=== PATIENT | female | born 1985 | race Caucasian/White ===

== ENCOUNTER 2016-11-27 19:50 | Emergency (ER) | payer OTHER ==
[2016-11-27] MEDS ORDERED: Amoxicillin CAP* 500 MG PO ONE (21:35)
[2016-11-27] MEDS ORDERED: predniSONE TAB* 20 MG PO ONE (21:35)
[2016-11-27] MEDS ORDERED: traMADol TAB* 50 MG PO ONE (21:35)
[2016-11-27 21:58] VITALS: BP 131/71
--- NOTE | 2016-11-27 23:28 | UC ---
Throat Pain/Nasal Ricardo HPI - HPI Summary HPI Summary: ST, LEFT NECK PAIN, EAR ACHE X 4 DAYS. LEFT FLANK PAIN THAT STARTED TODAY. - History of Current Complaint Chief Complaint: UCRespiratory Stated Complaint: SORE THROAT, LEFT SIDE PAIN UNDER RIBS Time Seen by Provider: 11/27/16 20:40 Hx Obtained From: Patient Hx Last Menstrual Period: now ?: No Onset/Duration: Sudden Onset, Lasting Days, Still Present, Worse Since - today Severity: Moderate Pain Intensity: 7 Cough: None Associated Signs & Symptoms: Positive: Dysphagia - pain. Negative: Drooling, Wheezing, Hoarseness, Sinus Discomfort, Nasal Discharge, Vomiting - Allergies/Home Medications Allergies/Adverse Reactions: Allergies Allergy/AdvReac Type Severity Reaction Status Date / Time Doxycycline Allergy Intermediate vomit Verified 11/27/16 20:04 Paroxetine [From Paxil] Allergy Agitation Verified 11/27/16 20:04 PMH/Surg Hx/FS Hx/Imm Hx - Additional Past Medical History Additional PMH: chrons, depression, anxiety, migraines - Surgical History Surgical History: Yes Surgery Procedure, Year, and Place: tubal, cervical dysplasia - Family History Known Family History: Positive: Cardiac Disease, Hypertension, Diabetes - Social History Lives: With Family Alcohol Use: None Substance Use Type: None Smoking Status (MU): Heavy Every Day Tobacco Smoker Type: Cigarettes Amount Used/How Often: 1/2 PPD Length of Time of Smoking/Using Tobacco: 14 YRS Have You Smoked in the Last Year: No When Did the Patient Quit Smoking/Using Tobacco: 1 yr ago Cessation Counseling: Counseled 3+Min - 10 Min Review of Systems Constitutional: Negative Skin: Negative ENT: Sore Throat, Ear Ache Respiratory: Negative Cardiovascular: Negative Gastrointestinal: Other - left flank pain Genitourinary: Negative Musculoskeletal: Negative Neurological: Negative All Other Systems Reviewed And Are Negative: Yes Physical Exam Triage Information Reviewed: Yes Appearance: Well-Appearing, No Pain Distress, Well-Nourished Vital Signs: Initial Vital Signs Temp 97.9 F 11/27/16 19:55 Pulse 78 11/27/16 19:55 Resp 24 11/27/16 19:55 BP 110/73 11/27/16 19:55 Pulse Ox 96 11/27/16 19:55 Vital Signs Reviewed: Yes Eyes: Positive: Conjunctiva Clear. Negative: Discharge ENT: Positive: Hearing grossly normal. Negative: Muffled/hoarse voice Neck: Positive: Supple, Tenderness @, Enlarged Nodes @ Respiratory: Positive: Lungs clear, Normal breath sounds, No respiratory distress, No accessory muscle use Cardiovascular: Positive: RRR, No Murmur Abdomen Description: Positive: Soft, CVA Tenderness (L). Negative: Nontender, Distended, Guarding, Mc[place]'s [place] Tenderness Bowel Sounds: Positive: Present Musculoskeletal Exam: Normal Neurological: Positive: Alert, Muscle Tone Normal Psychological: Positive: Age Appropriate Behavior Skin Exam: Normal Throat Pain/Nasal Course/Dx - Differential Dx/Diagnosis Differential Diagnosis/HQI/PQRI: Mononucleosis, Pharyngitis, Sinusitis, Tonsillitis, URI, Other - uti, reibdysfunction Provider Diagnoses: strep throat, rib dysfunction Discharge - Discharge Plan Condition: Stable Disposition: HOME Prescriptions: Amoxicillin CAP* [Amoxicillin 500 MG CAP*] 500 mg PO Q12H #19 cap predniSONE TAB* [Deltasone TAB*] 40 mg PO DAILY #8 tab traMADol TAB* [Ultram*] 50 mg PO Q8H PRN #14 tab MDD 3 TABS PRN Reason: Pain Patient Education Materials: Strep Throat (ED), Flank Pain (ED) Referrals: Candy Akbar PA [Primary Care Provider] - 3 Days Additional Instructions: Your rapid strep test was positive. So we are treating you for strep throat. AMOXICILLIN: Amoxicillin is a member of the penicillin family. It covers the germs likely to cause ear, bronchial, and urinary infections better than plain penicillin. Amoxicillin can be taken without regard to meals. Nausea after taking the medication is rare, but can occur. Diarrhea can occur, particularly in small children. Vaginal yeast infections and oral thrush in infants are also common. Contact your physician if these problems occur. Allergy to penicillins is common. If you have had an allergic reaction to any drug of the penicillin family, you should never take any other penicillin. Notify your doctor at once if you develop hives, itching, swelling, faintness, or shortness of breath. Less serious side effects can include nausea or diarrhea. CORTICOSTEROID MEDICATION: You have been given a medicine of the cortisone class. This medication is used to control inflammation or allergy. It is usually only given for a short period of time, until the acute process subsides. There are usually no side effects from short-term use of cortisone-like medications. Some persons feel an increased sense of well-being and are not sleepy at bedtime. Long-term use of cortisone medications is best avoided, unless required for a severe condition. If your condition does not remit, or relapses after the course of corticosteroid medication, you should consult your physician. Contact the physician if you develop lightheadedness, black or tarry stools , swelling of the legs, or significant rapid change in weight. Because people can have strep throat and mono at the same time, we are also testing you for mononucleosis because you also have left flank pain over your spleen and lower ribs. Sometimes mono can cause enlargement of the spleen. This would be important information you to have. If this is not mono, the most likely cause of your rib pain is that your rib is not moving right which can be very painful indeed. So we are giving you a pain medicine. ULTRAM (tramadol hydrochloride): Ultram is an excellent drug for pain relief. It is not a narcotic, but it works in a similar way. Ultram can take up to two hours for full effect. Although not addicting, Ultram is best avoided in patients with a history of drug abuse. Ultram should not be used with alcohol, sleeping pills, or narcotics. If you're prone to seizures, Ultram can make you more likely to have a seizure. Ultram can be hazardous when combined with MAO-inhibitor antidepressants (such as Nardil or Parnate). Be sure your doctor is aware of all medicines you are taking. Persons with severe liver or kidney disease should increase the time between doses of Ultram. Discuss this with your doctor if you're uncertain. Side effects of Ultram can include dizziness, nausea, constipation, sleepiness, and itching. (These side effects are also seen with narcotic pain medicines.) Please call your doctor if you have other disturbing effects. IT IS IMPORTANT THAT YOU FOLLOW UP WITH YOUR PCP THIS COMING WEDNESDAY. FOLLOW UP SOONER IF SX WORSEN OR NEW SYMPTOMS DEVELOP.
[2016-11-28 14:18] LABS: EBV Response YES
[2016-11-28 14:58] LABS: Hematocrit 39 % (35-47); Hemoglobin 13.1 g/dl (12.0-16.0); Mean Corpuscular HGB Conc 34 g/dl (31-36); Mean Corpuscular Hemoglobin 29 pg (27-31); Mean Corpuscular Volume 85 fL (80-97); Mean Platelet Volume 10 um3 (7.4-10.4); Red Blood Count 4.55 10^6/ul (4.0-5.4); Red Cell Distribution Width 13 % (10.5-15); White Blood Count 10.3 10^3/ul (3.5-10.8)
[2016-11-28 15:11] LABS: Albumin 4.2 g/dL (3.2-5.2); BUN/Creatinine Ratio 14.5 (8-20); Calcium 9.5 mg/dL (8.6-10.3); EGFR African American 112.7 (>60); EGFR Non-African American 87.6 (>60); Potassium 3.9 mmol/L (3.5-5.0); Total Bilirubin 0.4 mg/dL (0.2-1.0); Total Protein 7.2 g/dL (6.4-8.9)
[2016-11-28 15:40] LABS: Manual Entry Verification MD; Mono Internal Control QC Line Present
== END 2016-11-27 22:00 | disposition home or self-care (01) ==
LOC: UCCORT 19:50
DX: J02.0 Streptococcal pharyngitis (principal); Z87.891 Personal history of nicotine dependence; Z88.1 Allergy status to other antibiotic agents; Z88.8 Allergy status to other drugs, medicaments and biological substances
CPT/HCPCS: 36415; 80053; 81003; 85025; 86308; 86664; 86665; 87086; 87651; 99213; A9270-GY; G0463; J7512

== ENCOUNTER 2016-12-15 21:05 | Emergency (ER) | payer OTHER ==
[2016-12-15] MEDS ORDERED: Ibuprofen TAB* 600 MG PO ONE (21:30)
[2016-12-15 21:31] VITALS: BP 126/62
--- NOTE | 2016-12-15 21:35 | UC ---
Throat Pain/Nasal Ricardo HPI - HPI Summary HPI Summary: Patient had strep one month ago, only took 5 days of her amoxicillin, she felt better for a while. now she has throat pain, sinus congestion, both nares are swollen and have ulcerations with drainage, states she blows out bloody pus in the mornings. throat is sore, she is coughing and has dyspnea. - History of Current Complaint Chief Complaint: UCRespiratory Stated Complaint: CONGESTION Time Seen by Provider: 12/15/16 21:24 Hx Obtained From: Patient Hx Last Menstrual Period: last week of November ?: No Onset/Duration: Gradual Onset, Lasting Days Severity: Severe Associated Signs & Symptoms: Positive: Dysphagia, Wheezing, Sinus Discomfort, Nasal Discharge - Epiglottits Risk Factors Epiglottis Risk Factors: Negative - Allergies/Home Medications Allergies/Adverse Reactions: Allergies Allergy/AdvReac Type Severity Reaction Status Date / Time Doxycycline Allergy Intermediate vomit Verified 12/15/16 21:20 Paroxetine [From Paxil] Allergy Agitation Verified 12/15/16 21:20 PMH/Surg Hx/FS Hx/Imm Hx Previously Healthy: Yes - Surgical History Surgical History: Yes Surgery Procedure, Year, and Place: tubal, cervical dysplasia - Family History Known Family History: Positive: Cardiac Disease, Hypertension, Diabetes - Social History Alcohol Use: None Substance Use Type: None Smoking Status (MU): Heavy Every Day Tobacco Smoker Type: Cigarettes Amount Used/How Often: 1/2 PPD Length of Time of Smoking/Using Tobacco: 14 YRS Have You Smoked in the Last Year: No When Did the Patient Quit Smoking/Using Tobacco: 1 yr ago Review of Systems Constitutional: Fatigue Skin: Negative Eyes: Negative ENT: Sore Throat, Ear Ache, Nasal Discharge Respiratory: Shortness Of Breath, Cough Cardiovascular: Negative Gastrointestinal: Negative Genitourinary: Negative Motor: Negative Neurovascular: Negative Musculoskeletal: Negative Neurological: Headache Psychological: Negative All Other Systems Reviewed And Are Negative: Yes Physical Exam Triage Information Reviewed: Yes Appearance: Well-Nourished, Ill-Appearing, Pain Distress Vital Signs: Initial Vital Signs Temp 98 F 12/15/16 21:12 Pulse 80 12/15/16 21:12 Resp 18 12/15/16 21:12 BP 126/62 12/15/16 21:12 Pulse Ox 100 12/15/16 21:12 Vital Signs Reviewed: Yes Eye Exam: Normal Eyes: Positive: Conjunctiva Clear ENT: Positive: Pharyngeal erythema, Nasal congestion, Nasal drainage - purulent , TM dull, TM red Neck exam: Normal Neck: Positive: Supple, Nontender, Enlarged Nodes @ - bilateral cervical Respiratory Exam: Normal Respiratory: Positive: Decreased breath sounds, Other: - cehst tender in lower left ribs with deep breaths Cardiovascular Exam: Normal Cardiovascular: Positive: RRR, No Murmur, Pulses Normal Abdominal Exam: Normal Abdomen Description: Positive: Nontender, No Organomegaly, Soft Bowel Sounds: Positive: Present Musculoskeletal Exam: Normal Musculoskeletal: Positive: Strength Intact, ROM Intact, No Edema Neurological Exam: Normal Neurological: Positive: Alert, Muscle Tone Normal Psychological Exam: Normal Skin Exam: Normal Throat Pain/Nasal Course/Dx - Course Course Of Treatment: hx obtained, exam performed ,meds reviewed, Motrin given, chest xray, rapid strep negative and wound culture obtained from nose. - Differential Dx/Diagnosis Differential Diagnosis/HQI/PQRI: Influenza, Laryngitis, Otitis Media, Peritonsillar Abscess, Pharyngitis, Sinusitis, URI Provider Diagnoses: sinusitis. ulceration of both nares. possilbe mRSA Discharge - Discharge Plan Condition: Stable Disposition: HOME Patient Education Materials: Sinusitis (ED) Additional Instructions: 1. take the medication as prescribed. 2. Increase your fluid intake and get plenty of rest. 3. Use the nasal cream twice a day for a week. 4. Follow up if you are not seeing improvement of your symtpoms.
[2016-12-15] MEDS ORDERED: Mupirocin 2% OINT* TUBE TOPICAL ONE (21:41)
--- NOTE | 2016-12-15 21:55 | RAD ---
HISTORY: Shortness of breath, cough COMPARISONS: None VIEWS: 2: Frontal dual-energy and lateral views of the chest. FINDINGS: CARDIOMEDIASTINAL SILHOUETTE: The cardiomediastinal silhouette is normal. TAHIR: The tahir are normal. PLEURA: The costophrenic angles are sharp. No pleural abnormalities are noted. LUNG PARENCHYMA: The lungs are clear. ABDOMEN: The upper abdomen is clear. There is no subphrenic gas. BONES AND SOFT TISSUES: No bone or soft tissue abnormalities are noted. OTHER: None. IMPRESSION: NO ACTIVE CARDIOPULMONARY DISEASE.
[2016-12-15] MEDS ORDERED: Amoxicillin/Clavulanate TAB* 875 MG PO ONE (22:01)
[2016-12-15] MEDS ORDERED: Albuterol HFA INHALER* 8 gm MDI INH ONE (22:06)
== END 2016-12-15 22:15 | disposition home or self-care (01) ==
LOC: UCCORT 21:05
DX: Z87.891 Personal history of nicotine dependence (principal); J01.90 Acute sinusitis, unspecified; J34.0 Abscess, furuncle and carbuncle of nose
CPT/HCPCS: 71020; 87070; 87205; 87640; 87641; 87651; 99212; A9270-GY; G0463

== ENCOUNTER 2017-12-20 13:03 | Emergency (ER) | payer OTHER ==
--- NOTE | 2017-12-20 14:07 | UC ---
Eye Complaint HPI - HPI Summary HPI Summary: 32 yo female presents with left eye redness, drainage, and crusting for the last 3 WEEKS. She tells me that she has 7 children and hasn't had the time to get her eye treated. Does have some blurriness due to drainage. She wears contacts, but changes them daily to new pack. Denies fever, chills, injury to eye. - History of Current Complaint Hx Obtained From: Patient Hx Last Menstrual Period: last week of November Onset/Duration: Sudden Onset Timing: Constant <Mike Jennings - Last Filed: 12/20/17 14:31> <Luisito Britton - Last Filed: 12/20/17 15:00> - History of Current Complaint Stated Complaint: LEFT EYE COMPLAINT Time Seen by Provider: 12/20/17 14:05 - Allergies/Home Medications Allergies/Adverse Reactions: Allergies Allergy/AdvReac Type Severity Reaction Status Date / Time doxycycline Allergy Vomiting Verified 12/20/17 14:06 paroxetine [From Paxil] Allergy Agitation Verified 12/20/17 14:06 PMH/Surg Hx/FS Hx/Imm Hx - Additional Past Medical History Additional PMH: Rheumatoid arthritis Psychological History: Anxiety, Depression - Surgical History Surgical History: Yes Surgery Procedure, Year, and Place: tubal, cervical dysplasia - Family History Known Family History: Positive: Cardiac Disease, Hypertension, Diabetes - Social History Occupation: Employed Full-time Lives: With Family Alcohol Use: None Substance Use Type: None Smoking Status (MU): Heavy Every Day Tobacco Smoker Type: Cigarettes Amount Used/How Often: 1/2 PPD Length of Time of Smoking/Using Tobacco: 14 YRS Have You Smoked in the Last Year: No When Did the Patient Quit Smoking/Using Tobacco: 1 yr ago <Mike Jennings - Last Filed: 12/20/17 14:31> Review of Systems Constitutional: Negative Skin: Negative Eyes: Drainage, Eye Redness ENT: Negative Respiratory: Negative Cardiovascular: Negative Gastrointestinal: Negative Neurological: Negative Psychological: Negative All Other Systems Reviewed And Are Negative: Yes <Mike Jennings - Last Filed: 12/20/17 14:31> Physical Exam - Summary Physical Exam Summary: GENERAL: NAD. WDWN. No pain distress. SKIN: No rashes, sores, lesions, or open wounds. HEENT: Head: AT/NC Eyes: EOM intact. PERRLA. LEFT EYE: Moderate conjunctiva erythema and scleral injection. Mild yellow purulent drainage. RIGHT EYE: clear without inflammation or discharge. Nose: Nasal mucosa pink and moist. NTTP maxillary and frontal sinus. NECK: Supple. Nontender. No lymphadenopathy. CHEST: No accessory muscle use. Breathing comfortably and in no distress. CV: Pulses intact. Brisk cap refill. NEURO: Alert. CN II-XII grossly intact. PSYCH: Age appropriate behavior. Triage Information Reviewed: Yes Vital Signs: Vital Signs: Temp Pulse Resp BP Pulse Ox 98.3 F 61 20 104/64 100 12/20/17 14:08 12/20/17 14:08 12/20/17 14:08 12/20/17 14:08 12/20/17 14:08 <Mike Jennings - Last Filed: 12/20/17 14:31> Vital Signs: Initial Vital Signs Temp 98.3 F 12/20/17 14:08 Pulse 61 12/20/17 14:08 Resp 20 12/20/17 14:08 BP 104/64 12/20/17 14:08 Pulse Ox 100 12/20/17 14:08 <Luisito Britton - Last Filed: 12/20/17 15:00> Eye Complaint Course/Dx - Course Course Of Treatment: Left eye conjunctivitis - Differential Dx/Diagnosis Provider Diagnoses: Left eye conjunctivitis <Mike Jennings - Last Filed: 12/20/17 14:31> Discharge - Sign-Out/Discharge Documenting (check all that apply): Discharge/Admit/Transfer - Billing Disposition and Condition Condition: STABLE Disposition: Home <Mike Jennings - Last Filed: 12/20/17 14:31> - Billing Disposition and Condition Condition: STABLE Disposition: Home <Luisito Britton - Last Filed: 12/20/17 15:00> - Discharge Plan Condition: Stable Disposition: HOME Prescriptions: Ciprofloxacin 0.3% OPTH.MARTHA* [Cipro 0.3% Opth*] 1 drop LEFT EYE Q2H #1 btl Patient Education Materials: Conjunctivitis (ED) Referrals: Candy Akbar PA [Primary Care Provider] - Additional Instructions: If you develop a fever, shortness of breath, chest pain, new or worsening symptoms - please call your PCP or go to the ED. 1) If your eye does not improve in 3-4 days while using eye drops OR if your symptoms worsen, please go to the ER as vision damage could be permanent. Per institutional requirements, I have reviewed the chart, however, I was not consulted specifically or made aware of this patient by the above midlevel provider. I did not personally evaluate, interact with , or disposition this patient.
[2017-12-20 14:14] VITALS: BP 104/64
== END 2017-12-20 14:38 | disposition home or self-care (01) ==
LOC: UCCORT 13:03
DX: H10.9 Unspecified conjunctivitis (principal); Z88.1 Allergy status to other antibiotic agents; Z88.8 Allergy status to other drugs, medicaments and biological substances; F17.210 Nicotine dependence, cigarettes, uncomplicated
CPT/HCPCS: 99212; G0463

== ENCOUNTER 2018-09-14 13:09 | Emergency (ER) | payer OTHER ==
[2018-09-14 13:30] VITALS: BP 125/73
--- NOTE | 2018-09-14 13:35 | UC ---
Ear Complaint HPI - HPI Summary HPI Summary: Patient has had congestion and cold symptoms over the past 2 or 3 weeks. She states that she now has an earache. She also has sores in her nose for which she has been applying an antibiotic ointment which she believes is mupirocin but she's not sure. She feels like she may have had a fever. Today the nose is swollen with mild erythema. - History of Current Complaint Chief Complaint: UCGeneralIllness Stated Complaint: BILAT EAR PAIN/BODY ACHES/SORES IN NOSE Time Seen by Provider: 09/14/18 13:34 Hx Obtained From: Patient Hx Last Menstrual Period: 08/19/18 ?: No Onset/Duration: Gradual Onset Severity Initially: Mild Severity Currently: Moderate Pain Intensity: 4 Aggravating Factors: Nothing Alleviating Factors: Nothing Associated Signs/Symptoms: Positive: Swelling @ - Swelling and erythema to the end of her nose and around the sores that are in her nostrils., URI Symptoms - Allergies/Home Medications Allergies/Adverse Reactions: Allergies Allergy/AdvReac Type Severity Reaction Status Date / Time doxycycline Allergy Vomiting Verified 09/14/18 13:26 paroxetine [From Paxil] Allergy Agitation Verified 09/14/18 13:26 Home Medications: Home Medications Nasal Ointment 1 applic TID 09/14/18 [History] PMH/Surg Hx/FS Hx/Imm Hx Previously Healthy: Yes - Surgical History Surgical History: Yes Surgery Procedure, Year, and Place: tubal, cervical dysplasia - Family History Known Family History: Positive: Cardiac Disease, Hypertension, Diabetes - Social History Alcohol Use: None Substance Use Type: None Smoking Status (MU): Former Smoker Type: Cigarettes Amount Used/How Often: 1/2 PPD Length of Time of Smoking/Using Tobacco: 14 YRS Have You Smoked in the Last Year: No When Did the Patient Quit Smoking/Using Tobacco: 1 yr ago Review of Systems All Other Systems Reviewed And Are Negative: Yes Constitutional: Positive: Negative - She has not registered a fever however she feels feverish. Skin: Positive: Rash - Sores in both nostrils for which she has been applying mupirocin over the past couple of weeks without improvement. Today the end of her nose and around the sores is erythematous and tender with minimal swelling Eyes: Positive: Negative ENT: Positive: Ear Ache Respiratory: Positive: Negative Cardiovascular: Positive: Negative Gastrointestinal: Positive: Negative Genitourinary: Positive: Negative Motor: Positive: Negative Neurovascular: Positive: Negative Musculoskeletal: Positive: Negative Neurological: Positive: Negative Psychological: Positive: Negative Is Patient Immunocompromised?: No Physical Exam Triage Information Reviewed: Yes Appearance: Well-Appearing, No Pain Distress, Well-Nourished Vital Signs: Initial Vital Signs Temp 97.5 F 09/14/18 13:25 Pulse 71 09/14/18 13:25 Resp 16 09/14/18 13:25 BP 125/73 09/14/18 13:25 Pulse Ox 100 09/14/18 13:25 Vital Signs Reviewed: Yes Eye Exam: Normal ENT: Positive: Pharynx normal, Nasal congestion, TMs normal, Other - Patient has 2 scabs sores, one in each nostril, the end of her nose and around the sores are erythematous with tenderness on palpation and minimal swelling to the end of her nose. There is no red streaking in her face not swollen. Face is nontender. Neck exam: Normal Respiratory Exam: Normal Cardiovascular Exam: Normal Abdominal Exam: Normal Bowel Sounds: Positive: Present Musculoskeletal Exam: Normal Neurological Exam: Normal Psychological Exam: Normal Skin Exam: Normal Ear Complaint Course/Dx - Course Course Of Treatment: Patient has been comfortable here however her nose is excessively tender. There is no facial involvement other than the nose. I did advise her that if this worsens over the next 24-48 hours she definitely needs go to the emergency room. She is agreeable with plan of action. - Differential Dx/Diagnosis Differential Diagnosis/HQI/PQRI: URI Provider Diagnosis: Cellulitis of nose, external Discharge - Sign-Out/Discharge Documenting (check all that apply): Patient Departure All imaging exams completed and their final reports reviewed: No Studies - Discharge Plan Condition: Fair Disposition: HOME Prescriptions: Amoxicillin/Clavulanate TAB* [Augmentin TAB 875*] 875 mg PO BID 10 Days #20 tab Ondansetron TAB* [Zofran 4 MG Tab*] 4 mg PO Q6H PRN #15 tab PRN Reason: Nausea Patient Education Materials: Cellulitis (DC) Referrals: Candy Akbar PA [Primary Care Provider] - Additional Instructions: Take the Augmentin with food. Continue to apply the pavement to the sores in your nose. Definite follow-up in the emergency room if the nose becomes swollen or any swelling or redness to her face, fever or chills. - Billing Disposition and Condition Condition: FAIR Disposition: Home
== END 2018-09-14 13:48 | disposition home or self-care (01) ==
LOC: UCCORT 13:09
DX: J34.0 Abscess, furuncle and carbuncle of nose (principal); Z88.1 Allergy status to other antibiotic agents; Z88.8 Allergy status to other drugs, medicaments and biological substances; Z87.891 Personal history of nicotine dependence
CPT/HCPCS: 99212; G0463

== ENCOUNTER 2018-11-21 11:17 | Emergency (ER) | payer OTHER ==
--- OUTSIDE RECORDS SUMMARY | 2018-11-21 11:28 | XMS REPORT | Continuity of Care Document ---
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 NEGATIVE Negative Urine PH 8.5 High 6.5-7.5 Urine Protein - Dipstick TRACE mg/dL Negative Urine Urobilinogen - Dipstick 0.2 E.U./dL N 0.2-1.0 Urine Nitrite - Dipstick NEGATIVE Negative Urine Leuk Esterase NEGATIVE Negative Source: URINE, CLEAN CAT <SEE NOTE> 37 Laboratory test 07/30/2017 [facility] C-Reactive < 2.9 <3.0 finding [address] Protein,Quant mg/[place] [address] [phone] CBS W/Automated 07/30/2017 [facility] White Blood Count 8.2 K/uL N 3.1-10.[address] [place] [address] [phone] Red Blood Count 4.72 M/uL N 3.90-5.40 Hemoglobin 13.9 gm/dL N 11.6-15.8 Hematocrit 39.8 % N 36.0-46.1 Mean Cell Volume 84.3 fl N 80.9-99.0 Mean Corpuscular HGB 29.4 pg N 25.9-32.7 Mean Corpuscular HGB Conc 34.9 g/dL High 30.8-34.3 Platelet Count 272 K/uL N 155-360 Red Cell Distri Width SD 37.8 fl N 3-47 Red Cell Distri Width %CV 12.7 % N 11.7-14.4 Mean Platelet Volume 11.9 fL N 8.9-12.4 Neut% 60.4 % N 40.4-72.8 Lymph % 31.2 % N 20.0-42.0 [place] % 5.9 % N 4.3-13.2 Eo% 2.1 % N 0.0-6.6 Bas% 0.4 % N 0.0-1.1 Neut# 4.96 K/uL N 1.8-7.0 Lymph # 2.56 K/uL N 1.0-4.0 [place] # 0.48 K/uL N 0.3-0.9 Eos # 0.17 K/uL N 0.0-0.5 Baso # 0.03 K/uL N 0.0-0.1 Laboratory test finding 07/30/2017 [facility] Uric Acid 3.5 mg/dL N 2.6-6.[address] [place] [address] [phone] Calcium 9.6 mg/dL N 8.5-10.1 Total Protein 7.9 g/dL N 6.4-8.2 Albumin 4.1 g/dL N 3.4-5.0 Alb/Glob 1.1 ratio Alkaline Phosphatase 71 U/L N 45-117 Rheumatoid Factor Screen < 10.0 IU/mL N 0.0-15.0 Globulin 3.8 g/dL N 1.9-4.3 Sedimentation Rate 13 mm/hr N 0-20 38 Antinuclear Antibodies, Ifa Negative . 39 Urine HCG 07/23/2017 [facility] Urine HCG NEGATIVE Negative 40, (Qualitative) [address] (Qualitative) 41 [place] [address] [phone] Source: URINE, CLEAN CAT <SEE NOTE> 42 Ua RFX Micro & Culture 07/23/2017 [facility] Urine Color YELLOW Yellow II [address] [place] [address] [phone] Urine Clarity CLEAR Clear Urine Glucose - Dipstick NEGATIVE mg/dL Negative Urine Bilirubin - Dipstick NEGATIVE Negative Urine Ketone NEGATIVE mg/dL Negative Urine Specific [place] 1.015 N 1.010-1.030 Urine Blood NEGATIVE Negative Urine PH 7.0 N 6.5-7.5 Urine Protein - Dipstick NEGATIVE mg/dL Negative Urine Urobilinogen - Dipstick 1.0 E.U./dL N 0.2-1.0 Urine Nitrite - Dipstick NEGATIVE Negative Urine Leuk Esterase NEGATIVE Negative Source: URINE, CLEAN CAT <SEE NOTE> 43 Drugs Of 07/23/2017 [facility] Amphetamines (Urine) Negative Abuse-Urine Screen [address] [place] [address] [phone] Barbiturates (Urine) Negative Benzodiazepines (Urine) Negative Cannabinoids (Urine) Negative Cocaine Metabolite (Urine) Negative Methadone (Urine) Negative Opiates (Urine) Negative Urine Cutoffs * 44 Laboratory test 06/09/2017 [facility] Thinprep Pap & <pending> finding [address] Reflex HPV: [place] [address] [phone] CBS W/Automated 06/09/2017 [facility] White Blood 8.0 K/uL N 3.1-10. [address] Count 7 [place] [address] [phone] Red Blood Count 4.73 M/uL N 3.90-5.40 Hemoglobin 14.0 gm/dL N 11.6-15.8 Hematocrit 40.2 % N 36.0-46.1 Mean Cell Volume 85.0 fl N 80.9-99.0 Mean Corpuscular HGB 29.6 pg N 25.9-32.7 Mean Corpuscular HGB Conc 34.8 g/dL High 30.8-34.3 Platelet Count 310 K/uL N 155-360 Red Cell Distri Width SD 37.9 fl N 3-47 Red Cell Distri Width %CV 12.6 % N 11.7-14.4 Mean Platelet Volume 11.4 fL N 8.9-12.4 Neut% 62.2 % N 40.4-72.8 Lymph % 30.0 % N 20.0-42.0 [place] % 5.4 % N 4.3-13.2 Eo% 2.0 % N 0.0-6.6 Bas% 0.4 % N 0.0-1.1 Neut# 4.98 K/uL N 1.8-7.0 Lymph # 2.40 K/uL N 1.0-4.0 [place] # 0.43 K/uL N 0.3-0.9 Eos # 0.16 K/uL N 0.0-0.5 Baso # 0.03 K/uL N 0.0-0.1 TSH Reflex FT4 06/09/2017 [facility] Thyroid Stim 1.46 uIU/mL N 0.30-4.20 And/Or FT3 [address] Hormone [place], [place] [id number] [phone] Reflex add FT3? N Reflex add FT4? Y Laboratory 02/09/2017 [facility] Urine HCG NEGATIVE Negative 46, 47 test finding [address] (Qualitative) [place], [place] [id number] [phone] Laboratory 12/15/2016 [facility] Laboratory Wound/Misc SEE RESULT 48, 49 test finding [phone] Culture-Gram BELOW Stain MRSA/S. aureus Ssti PCR SEE RESULT BELOW 50 Laboratory 12/15/2016 [facility] Laboratory Rapid Strep Negative N Negative 51 test finding [phone] Molecular Laboratory 11/27/2016 [facility] Laboratory Rapid Strep POSITIVE Abnormal Negative 52 test finding [phone] Molecular Poc Urinalysis 11/27/2016 [facility] Laboratory Poc Glucose, Negative N Negative [phone] Urine Poc Bilirubin, Urine Negative N Negative Poc Ketone, Urine Negative N Negative Poc Specific [place], Urine 1.010 N 1.010-1.030 Poc Blood, Urine 2+ Abnormal Negative Poc pH, Urine 7.0 N 5-9 Poc Protein, Urine Negative N Negative Poc Urobilinogen, Urine 1.0 N Negative Poc Nitrite, Urine Negative N Negative Poc Leukocytes, Urine Negative N Negative Poc Color, Urine Yellow N Poc Clarity, Urine Cloudy N 53 Comp Metabolic Panel 11/27/2016 [facility] Sodium 136 mmol/L N 133-145 [phone] Potassium 3.9 mmol/L N 3.5-5.0 Chloride 105 mmol/L N 101-111 Co2 Carbon Dioxide 25 mmol/L N 22-32 Anion Gap 6 mmol/L N 2-11 Glucose 81 mg/dL N 70-100 Blood Urea Nitrogen 11 mg/dL N 6-24 Creatinine 0.76 mg/dL N 0.51-0.95 BUN/Creatinine Ratio 14.5 N 8-20 Calcium 9.5 mg/dL N 8.6-10.3 Total Protein 7.2 g/dL N 6.4-8.9 Albumin 4.2 g/dL N 3.2-5.2 Globulin 3.0 g/dL N 2-4 Albumin/Globulin Ratio 1.4 N 1-3 Total Bilirubin 0.40 mg/dL N 0.2-1.0 Alkaline Phosphatase 68 U/L N 34-104 Alt 9 U/L N 7-52 Ast 12 U/L Low 13-39 Egfr Non- 87.6 N >60 Egfr 112.7 N >60 54 CBC Auto Diff 11/27/2016 [facility] Laboratory White Blood 10.3 10^3/uL N 3.5-10.8 [phone] Count Red Blood Count 4.55 10^6/uL N 4.0-5.4 Hemoglobin 13.1 g/dL N 12.0-16.0 Hematocrit 39 % N 35-47 Mean Corpuscular Volume 85 fL N 80-97 Mean Corpuscular Hemoglobin 29 pg N 27-31 Mean Corpuscular HGB Conc 34 g/dL N 31-36 Red Cell Distribution Width 13 % N 10.5-15 Platelet Count 252 10^3/uL N 150-450 Mean Platelet Volume 10 um3 N 7.4-10.4 Abs Neutrophils 6.5 10^3/uL N 1.5-7.7 Abs Lymphocytes 2.9 10^3/uL N 1.0-4.8 Abs Monocytes 0.6 10^3/uL N 0-0.8 Abs Eosinophils 0.2 10^3/uL N 0-0.6 Abs Basophils 0.1 10^3/uL N 0-0.2 Abs Nucleated RBC 0.01 10^3/uL N Granulocyte % 62.8 % N 38-83 Lymphocyte % 28.2 % N 25-47 Monocyte % 6.3 % N 1-9 Eosinophil % 1.7 % N 0-6 Basophil % 1.0 % N 0-2 Nucleated Red Blood Cells % 0.1 N Laboratory test 11/27/2016 [facility] Laboratory Monospot Negative N Negative 55 finding [phone] Urine Culture SEE RESULT BELOW 56 Juanis Mulligan 11/27/2016 [facility] Laboratory Ebv Capsid Positive N Negative Comprehensive [phone] Ag IgG Ab Ebv Capsid Ag IgM Ab Negative N Negative Juanis-Mulligan Nuclear Antigen Positive N Negative Juanis-Mulligan Virus Interp See Comment N 57 Lyme Igm (Reflex 11/05/2016 [facility] Lyme Disease <0.80 0.00-0.79 58, Western Blot) [address] Antibody,QT,Igm index 59 [place], [place] [id number] [phone] CCP Igg/Iga 11/05/2016 [facility] CCP Igg/Iga 11 0-19 [address] Antibodies units [place], [place] [id number] [phone] Comprehensive 11/05/2016 [facility] Glucose 94 N 74-106 Metabolic Panel [address] mg/dL [place], [place] [id number] [phone] BUN 9 mg/dL N 7-18 Creatinine 0.6 mg/dL N 0.6-1.3 Glom Filtration Rate, Estimate >60 mL/min >60 If >60 mL/min >60 61 BUN/Creat 15.0 ratio Sodium 142 mmol/L N 136-145 Potassium 4.0 mmol/L N 3.5-5.1 Chloride 105 mmol/L N 98-107 Carbon Dioxide 32 mmol/L N 21-32 Anion Gap 5 mEq/L Low 8-16 Calcium 9.1 mg/dL N 8.5-10.1 Total Protein 7.4 g/dL N 6.4-8.2 Albumin 3.7 g/dL N 3.4-5.0 Globulin 3.7 g/dL N 1.9-4.3 Alb/Glob 1.0 ratio Bilirubin,Total 0.3 mg/dL N 0.2-1.0 Sgot/Ast 15 U/L N 15-37 SGPT/Alt 30 U/L N 12-78 Alkaline Phosphatase 70 U/L N 45-117 CBS W/Automated Diff 11/05/2016 [facility] White Blood 6.6 K/uL N 3.1-10.[address] [place] [address] [phone] Red Blood Count 4.47 M/uL N 3.90-5.40 Hemoglobin 13.2 gm/dL N 11.6-15.8 Hematocrit 39.0 % N 36.0-46.1 Mean Cell Volume 87.2 fl N 80.9-99.0 Mean Corpuscular HGB 29.5 pg N 25.9-32.7 Mean Corpuscular HGB Conc 33.8 g/dL N 30.8-34.3 Platelet Count 276 K/uL N 150-400 Red Cell Distri Width SD 38.9 fl N 3-47 Red Cell Distri Width %CV 12.4 % N 11.7-14.4 Mean Platelet Volume 11.9 fL N 8.9-12.4 Neut% 58.4 % N 40.4-72.8 Lymph % 33.6 % N 20.0-42.0 [place] % 5.7 % N 4.3-13.2 Eo% 1.8 % N 0.0-6.6 Bas% 0.5 % N 0.0-1.1 Neut# 3.86 K/uL N 1.8-7.0 Lymph # 2.22 K/uL N 1.0-4.0 [place] # 0.38 K/uL N 0.3-0.9 Eos # 0.12 K/uL N 0.0-0.5 Baso # 0.03 K/uL N 0.0-0.1 Laboratory test 11/05/2016 [facility] Sedimentation Rate 17 mm/hr N 0-20 62 finding [address] [place] [address] [phone] Uric Acid 4.3 mg/dL N 2.6-6.0 Calcium 9.2 mg/dL N 8.5-10.1 Total Protein 7.4 g/dL N 6.4-8.2 Albumin 3.8 g/dL N 3.4-5.0 Alb/Glob 1.1 ratio Alkaline Phosphatase 70 U/L N 45-117 Rheumatoid Factor Screen < 10.0 IU/mL N 0.0-15.0 Globulin 3.6 g/dL N 1.9-4.3 Antinuclear Antibodies, Ifa Negative . 63 Urine Screen 12/12/2015 [facility] Urine Color YELLOW Yellow [address] [place] [address] [phone] Urine Clarity CLEAR Clear Urine Glucose - Dipstick NEGATIVE mg/dL Negative Urine Bilirubin - Dipstick NEGATIVE Negative Urine Ketone NEGATIVE mg/dL Negative Urine Specific [place] 1.010 1.010-1.030 Urine Blood NEGATIVE Negative Urine PH 7.0 6.5-7.5 Urine Protein - Dipstick NEGATIVE mg/dL Negative Urine Urobilinogen - Dipstick 0.2 E.U./dL 0.2-1.0 Urine Nitrite - Dipstick NEGATIVE Negative Urine Leuk Esterase NEGATIVE Negative Laboratory test 05/15/2015 [facility] TSH Reflex 2.84 uIU/mL 0.36-3.74 64 finding 134 [facility] FT4 and/[place] [address] FT3 [phone] FSH 7.4 mIU/mL 65 Luteinizing Hormone 3.6 mIU/mL 66 Prolactin 4.1 ng/mL 67 Comprehensive Metabolic 05/15/2015 [facility] Glucose 78 mg/dL 74-106 Panel [address] [place] [address] [phone] BUN 9 mg/dL 7-18 Creatinine 0.8 mg/dL 0.6-1.3 Glom Filtration Rate, Estimate >60 mL/min >60 If >60 mL/min >60 68 BUN/Creat 11.2 ratio Sodium 140 mmol/L 136-145 Potassium 3.9 mmol/L 3.5-5.1 Chloride 108 mmol/L High 98-107 Carbon Dioxide 28 mmol/L 21-32 Anion Gap 4 mEq/L Low 8-16 Calcium 8.9 mg/dL 8.5-10.1 Total Protein 7.6 g/dL 6.4-8.2 Albumin 3.6 g/dL 3.4-5.0 Globulin 4.0 g/dL 1.9-4.3 Alb/Glob 0.9 ratio Bilirubin,Total 0.2 mg/dL 0.2-1.0 Sgot/Ast 14 U/L Low 15-37 69 SGPT/Alt 28 U/L 12-78 Alkaline Phosphatase 84 U/L 45-117 CBC W/Automated Diff 05/15/2015 [facility] White Blood 9.6 K/uL 3.1-10.[address] [place] [address] [phone] Red Blood Count 4.40 M/uL 3.90-5.40 Hemoglobin 13.2 gm/dL 11.6-15.8 Hematocrit 38.3 % 36.0-46.1 Mean Cell Volume 87.0 fl 80.9-99.0 Mean Corpuscular HGB 30.0 pg 25.9-32.7 Mean Corpuscular HGB Conc 34.5 g/dL High 30.8-34.3 Platelet Count 286 K/uL 155-360 Red Cell Distri Width SD 39.2 fl 3-47 Red Cell Distri Width %CV 12.8 % 11.7-14.4 Mean Platelet Volume 10.9 fL 8.9-12.4 Neut% 61.9 % 40.4-72.8 Lymph % 27.7 % 17.0-46.1 [place] % 6.9 % 4.3-13.2 Eo% 3.0 % 0.0-6.6 Bas% 0.5 % 0.0-1.1 Neut# 5.92 K/uL 1.0-7.0 Lymph # 2.65 K/uL 1.8-7.0 [place] # 0.66 K/uL 0.3-0.9 Eos # 0.29 K/uL 0.0-0.5 Baso # 0.05 K/uL 0.0-0.1 Glycohemoglobin A1c 10/16/2014 [facility] Glycohemoglobin 5.0 % 4.2-6.3 70 [address] (A1c) [place] [address] [phone] eAG 97 mg/dL Comprehensive Metabolic 10/16/2014 [facility] Glucose 95 mg/dL 74-106 Panel [address] [place] [address] [phone] BUN 7 mg/dL 7-18 Creatinine 0.8 mg/dL 0.6-1.3 Glom Filtration Rate, Estimate >60 mL/min >60 If >60 mL/min >60 71 BUN/Creat 8.7 ratio Sodium 136 mmol/L 136-145 Potassium 3.9 mmol/L 3.5-5.1 Chloride 103 mmol/L 98-107 Carbon Dioxide 27 mmol/L 21-32 Anion Gap 6 mEq/L Low 8-16 Calcium 8.9 mg/dL 8.5-10.1 Total Protein 7.9 g/dL 6.4-8.2 Albumin 3.9 g/dL 3.4-5.0 Globulin 4.0 g/dL 1.9-4.3 Alb/Glob 1.0 ratio Bilirubin,Total 0.2 mg/dL 0.2-1.0 Sgot/Ast 20 U/L 15-37 SGPT/Alt 39 U/L 12-78 Alkaline Phosphatase 75 U/L 45-117 Laboratory test 10/16/2014 [facility] Uric Acid 4.6 mg/dL 2.6-6.0 72 finding [address] [place] [address] [phone] Thyroid Stim Hormone 1.40 uIU/mL 0.36-3.74 73 Rheumatoid Factor Screen < 10.0 IU/mL 0.0-15.0 74 Antinuclear Antibodies, Ifa Negative . 75 Sedimentation Rate 18 mm/hr 0-20 Laboratory test 12/23/2010 [facility] Gallbladder See Note 76 finding [address] [place] [place] [address] [phone] Basic Metabolic 12/17/2010 [facility] Glucose 65 mg/dL Low 76-115 Panel [address] [place] [place] [address] [phone] BUN 8 mg/dL 5-23 Creatinine 0.6 mg/dL 0.5-1.4 Glom Filtration Rate, Estimate >60 mL/min >60 If >60 mL/min >60 77 BUN/Creat 13.3 Sodium 138 mEq/L 136-145 Potassium 3.7 mEq/L 3.5-5.1 Chloride 102 mEq/L 98-107 Carbon Dioxide 30 mEq/L 21-32 Anion Gap 10 mEq/L 8-16 Calcium 8.9 mg/dL 8.5-10.1 Urine Screen 12/17/2010 [facility] Urine Color YELLOW Yellow [address] [place] [address] [phone] Urine Clarity CLEAR Clear Urine Glucose - Dipstick NEGATIVE mg/dL Negative Urine Bilirubin - Dipstick NEGATIVE Negative Urine Ketone NEGATIVE mg/dL Negative Urine Specific [place] <=1.005 Low 1.010-1.030 Urine Blood NEGATIVE Negative Urine PH 7.0 6.5-7.5 Urine Protein - Dipstick NEGATIVE mg/dL Negative Urine Urobilinogen - Dipstick 0.2 E.U./dL 0.2-1.0 Urine Nitrite - Dipstick NEGATIVE Negative Urine Leuk Esterase NEGATIVE Negative CBC 12/17/2010 [facility] White Blood Count 7.9 K/uL 3.1-10.[address] [place] [address] [phone] Red Blood Count 4.50 M/uL 3.90-5.40 Hemoglobin 12.6 gm/dL 11.6-15.8 Hematocrit 37.4 % 36.0-46.1 Mean Cell Volume 83.1 fl 80.9-99.0 Mean Corpuscular HGB 28.0 pg 25.9-32.7 Mean Corpuscular HGB Conc 33.7 g/dL 30.8-34.3 Platelet Count 272 K/uL 155-360 Red Cell Distri Width %CV 12.6 % 11.7-14.4 Mean Platelet Volume 11.4 fL 8.9-12.4 Liver Function Tests 12/17/2010 [facility] Total Protein 6.5 g/dL 6.3-8.0 [address] [place] [address] [phone] Albumin 3.4 g/dL Low 3.5-5.0 Bilirubin,Total 0.3 mg/dL 0.2-1.2 Bilirubin,Direct 0.1 mg/dL 0.1-0.4 Bilirubin,Indirect 0.2 mg/dL 0.0-0.9 Sgot/Ast 11 U/L Low 16-40 SGPT/Alt 27 U/L Low 30-65 Alkaline Phosphatase 78 U/L 50-136 Globulin 3.1 gm/dL 1.9-4.3 Alb/Glob 1.1 Antineutrophil 10/31/2010 [facility] Cytoplasmic <1:20 Neg:<1:20 Cytoplasmic AB [address] (C-Anca) [place] [address] [phone] Perinuclear (P-Anca) <1:20 titer Neg:<1:20 78 Atypical pANCA <1:20 titer Neg:<1:20 79 Laboratory test 10/31/2010 [facility] C-Reactive 1.2 mg/L 0.0-4.9 [address] Protein,[place] [address] [phone] CBC 10/31/2010 [facility] White Blood Count 8.6 K/uL 3.1-10.[address] [place] [address] [phone] Red Blood Count 4.50 M/uL 3.90-5.40 Hemoglobin 12.7 gm/dL 11.6-15.8 Hematocrit 37.6 % 36.0-46.1 Mean Cell Volume 83.6 fl 80.9-99.0 Mean Corpuscular HGB 28.2 pg 25.9-32.7 Mean Corpuscular HGB Conc 33.8 g/dL 30.8-34.3 Platelet Count 255 K/uL 155-360 Red Cell Distri Width %CV 12.9 % 11.7-14.4 Mean Platelet Volume 10.6 fL 8.9-12.4 Saccharomyces 10/31/2010 [facility] Saccharomyces 23.2 0.0-24.9 81 Cerevisiae Panel [address] cerevisiae, [place] [address] [phone] Saccharomyces cerevisiae, IgA < 20.0 units 0.0-24.9 82 Liver Function Tests 10/31/2010 [facility] Total Protein 7.5 g/dL 6.3-8.[address] [place] [address] [phone] Albumin 3.8 g/dL 3.5-5.0 Bilirubin,Total 0.3 mg/dL 0.2-1.2 Bilirubin,Direct 0.1 mg/dL 0.1-0.4 Bilirubin,Indirect 0.2 mg/dL 0.0-0.9 Sgot/Ast 11 U/L Low 16-40 SGPT/Alt 28 U/L Low 30-65 Alkaline Phosphatase 80 U/L 50-136 Globulin 3.7 gm/dL 1.9-4.3 Alb/Glob 1.0 Laboratory test 10/31/2010 [facility] Amylase 45 U/L 18-98 83 finding [address] [place] [address] [phone] Laboratory test 05/08/2010 [facility] Endocervical See Note 84 finding [address] [place] [address] [phone] 1 CROHNS, CONSTIPATION, DIZZY 2 URINE, CLEAN CATCH 3 Note: Persistent reduction for 3 months or more in an eGFR <60 mL/min/1.73 m2 defines CKD. Patients with eGFR values >/=60 mL/min/1.73 m2 may also have CKD if evidence of persistent proteinuria is present. The original MDRD equation for estimated GFR is not valid for patients less than 18 years of age. Additional information may be found at www.kdoqi.org. 4 Values below the stated reference ranges of AST and ALT can be seen in normal populations. Clinical correlation is suggested. 5 Method: Quidel QuickVue One-Step Immunoassay 6 MIGRAINE 7 Method: Quidel QuickVue One-Step Immunoassay 8 K50.90 R19.7 R10.84 9 The atypical pANCA pattern has been observed in a significant percentage of patients with ulcerative colitis, primary sclerosing cholangitis and autoimmune hepatitis. ASCA+/PANCA- Suggestive of Crohn's disease ASCA-/PANCA+ Suggestive of Ulcerative colitis Performed at: [address] [id number] Lmsw: Lencho Patel MD, Phone: [phone] 10 Negative <20.0 Equivocal 20.1 - 24.9 Positive >or=25.0 11 Negative <20.0 Equivocal 20.1 - 24.9 Positive >or=25.0 IgA and IgG antibody testing for S. cerevisiae is useful adjunct testing for differentiating Crohn's disease and ulcerative colitis. Close to 80% of Crohn's disease patients are positive for either IgA or IgG. In ulcerative colitis, less than 15% are positive for IgG and less than 2% are positive for IgA. Fewer than 5% are positive for either IgG or IgA antibody, and no healthy controls had antibody for both. 12 K50.90 13 Concentration Interpretation Follow-Up <16 - 50 ug/g Normal None >50 -120 ug/g Borderline Re-evaluate in 4-6 weeks >120 ug/g Abnormal Repeat as clinically indicated Performed at: - [facility] [id number] Lmsw: Camelia Salomon MD, Phone: [phone] 14 Results verified by repeat testing Baseline (normal) 0.00 - 7.24 Elevated >7.24 An elevated result is indicative of the presence of fecal lactoferrin, a marker of intestinal inflammation. A normal result does not exclude the presence of intestinal inflammation. The test can be used as an in vitro diagnostic aid to distinguish patients with active inflammatory bowel disease (IBD) from those with non-inflammatory irritable bowel syndrome (IBS). 15 Method: Sediplast Modified Westergren 16 Vitamin D deficiency has been defined by the [place] of [employer] and an Endocrine Society practice guideline as a level of serum 25-OH vitamin D less than 20 ng/mL (1,2). The Endocrine Society went on to further define vitamin D insufficiency as a level between 21 and 29 ng/mL (2). 1. IOM ([place] of [employer]). 2010. Dietary reference intakes for calcium and D. Rachel [place]: The National Academies Press. 2. Elina MF, Stevie NC, Rajan INMAN, et al. Evaluation, treatment, and prevention of vitamin D deficiency: an Endocrine Society clinical practice guideline. JCEM. 2010; 96(7):1911-30. Performed at: - [facility] [address] [id number] Lmsw: Bonny Okeefe MD, Phone: [phone] 17 Negative 0 - 19 Weak Positive 20 - 30 Moderate to Strong Positive >30 18 Negative 0 - 19 Weak Positive 20 - 30 Moderate to Strong Positive >30 19 Negative 0 - 3 Weak Positive 4 - 10 Positive >10 Tissue Transglutaminase (tTG) has been identified as the endomysial antigen. Studies have demonstr- ated that endomysial IgA antibodies have over 99% specificity for gluten sensitive enteropathy. 20 Negative 0 - 5 Weak Positive 6 - 9 Positive >9 21 INFCE Result Units: Units/mL RBC Reference Range: Normal: 15.1 - 26.4 Heterozygous for low TPMT variant: 6.3 - 15.0 Homozygous for low TPMT variant: <6.3 22 The above results can be interpreted as Normal for red blood cell Thiopurine Methyltransferase activity. For patients having an intrinsic low level of TPMT, recent RBC transfusion can variably increase their assayed enzymatic activity depending on the amount and circulating half-life of the transfused red blood cells. This test was developed and its performance characteristics determined by [facility] ???. It has not been cleared or approved by the Food and Drug Administration. This case has been reviewed, approved, interpreted and electronically signed by Emmanuel Cr, PhD. 23 Enzymatic Endpoint/Liquid Chromatography - Tandem Mass Spectrometry (LC-MS/MS) Performed at: [facility] [id number] Lmsw: Bonny Okeefe MD, Phone: [phone] Performed at: [facility] [address] [place] [id number] Lmsw: Robin Alvarado MD, Phone: [phone] 24 SENT BY CHAPIN QUIÑONEZ 25 Tests: troponin Instructions: 26 Note: Persistent reduction for 3 months or more in an eGFR <60 mL/min/1.73 m2 defines CKD. Patients with eGFR values >/=60 mL/min/1.73 m2 may also have CKD if evidence of persistent proteinuria is present. The original MDRD equation for estimated GFR is not valid for patients less than 18 years of age. Additional information may be found at www.kdoqi.org. 27 Values below the stated reference ranges of AST and ALT can be seen in normal populations. Clinical correlation is suggested. 28 Method: Quidel QuickVue One-Step Immunoassay 29 0.0 - 0.045 ng/mL: Normal 0.046 - 0.5 ng/mL: Suggestive 0.6 - 1.5 ng/mL: Consistent 30 URINE, CLEAN CATCH 31 LOWER ABD PAIN 32 Note: Persistent reduction for 3 months or more in an eGFR <60 mL/min/1.73 m2 defines CKD. Patients with eGFR values >/=60 mL/min/1.73 m2 may also have CKD if evidence of persistent proteinuria is present. The original MDRD equation for estimated GFR is not valid for patients less than 18 years of age. Additional information may be found at www.kdoqi.org. 33 Values below the stated reference ranges of AST and ALT can be seen in normal populations. Clinical correlation is suggested. 34 Method: Sediplast Modified Westergren 35 FIRST MORNING SPECIMENS GENERALLY CONTAIN THE HIGHEST CONCENTRATION OF HCG AND ARE RECOMMENDED FOR EARLY DETECTION OF . Method: Quidel QuickVue One-Step Immunoassay 36 URINE, CLEAN CATCH 37 URINE, CLEAN CATCH 38 Method: Sediplast Modified Westergren 39 Negative <1:80 Borderline 1:80 Positive >1:80 Performed at: - [facility] [id number] Lmsw: Bonny Okeefe MD, Phone: [phone] 40 EVAL 41 FIRST MORNING SPECIMENS GENERALLY CONTAIN THE HIGHEST CONCENTRATION OF HCG AND ARE RECOMMENDED FOR EARLY DETECTION OF . Method: Quidel QuickVue One-Step Immunoassay 42 URINE, CLEAN CATCH 43 URINE, CLEAN CATCH 44 URINE SPECIMENS ARE SCREENED AT THE LISTED [facility] DRUG CLASS INITIAL TEST LEVEL Amphetamines 1000 ng/mL Barbiturates 200 ng/mL Benzodiazepines 200 ng/mL Cannabinoids 50 ng/mL Cocaine Metabolite 300 ng/mL Methadone 300 ng/mL Opiates 300 ng/mL Any PRESUMPTIVE POSITIVE findings are UNCONFIRMED. Confirmatory testing is suggested if findings are unexpected. Please contact laboratory if confirmatory testing is desired. SPECIMENS ARE HELD FOR 72 HOURS. 45 N92.1 46 INMAN,STOMACH PAIN,NAUSEA 47 FIRST MORNING SPECIMENS GENERALLY CONTAIN THE HIGHEST CONCENTRATION OF HCG AND ARE RECOMMENDED FOR EARLY DETECTION OF . Method: Quidel QuickVue One-Step Immunoassay 48 [id number] SEE RESULT BELOW Name: KAT BOLIVAR Maxi : [address]: Jason Lopez MD Acct: [id number] Unit: [id number] AGE: 31 Location: [facility] Re12/15/16 SEX: F Status: DEP ER SPEC: [id number] CODY: 12/15/16-[address] [facility] [address]: Milagros Khalil NP REQ: [id number] RECD: 12/16/16 STATUS: ANTON CARRERA DR: [facility] Candy RUCKER _ SOURCE: RIGHT DEANDRA SPDESC: ORDERED: MRSA/SA SSTI, Culture Stain COMMENTS: [id number] Procedure Result Reported Site MRSA/S. aureus SSTI PCR PENDING Wound/Misc Gram Stain Final 12/16/16- 1405 ML 4+ Neutrophils 2+ Nucleated Cells 2+ Epithelial Cells 1+ Gram Positive Cocci 1+ Gram Positive Bacilli Wound/Misc Culture PENDING * ML - MAIN LAB ([facility]) . END OF REPORT * ML=Testing performed at Main Lab DEPARTMENT OF PATHOLOGY, [address] [place] [address] Jason Astudillo M.D. Director [facility] # [id number] 50 SEE RESULT BELOW Name: KAT BOLIVAR : [address]: Jason Lopez MD Acct: [id number] Unit: [id number] AGE: 31 Location: [facility] Re12/15/16 SEX: F Status: DEP ER SPEC: [id number] CODY: 12/15/16-[address] [facility] [address]: Milagros Khalil NP REQ: [id number] RECD: 12/16/16-1256 STATUS: ROSALBA CARRERA DR: [facility] Candy RUCKER _ SOURCE: NARE,RIGHT SPDESC: ORDERED: MRSA/SA SSTI, Culture Stain COMMENTS: [id number] Verbal to [id number] by [id number] at 1518 on 12/16/16. Results read back accurately. Procedure Result Reported Site MRSA/S. aureus SSTI PCR Final 12/16/16- 1526 ML Organism 1 MRSA NEGATIVE Organism 2 S.AUREUS POSITIVE Wound/Misc Gram Stain Final 12/16/16- 1405 ML 4+ Neutrophils 2+ Nucleated Cells 2+ Epithelial Cells 1+ Gram Positive Cocci 1+ Gram Positive Bacilli Wound/Misc Culture Final 12/18/16- 0930 ML Organism 1 STAPHYLOCOCCUS AUREUS Quantity 2+ 1. STAPHYLOCOCCUS AUREUS M.I.C. RX --------- ------ Penicillin >=0.5 R Clindamycin R This isolate is presumed to be resistant based on detection of inducible Clindamycin resistance. Clindamycin may still be effective in some patients. Erythromycin >=8 R CONTINUED ON NEXT PAGE * ML=Testing performed at Main Lab DEPARTMENT OF PATHOLOGY, [address] [place] [address] Jason Astudillo M.D. Director [facility] # [id number] Patient: KAT BOLIVAR [id number] (Continued) Specimen: [id number] Collected: 12/15/16-2134 Received: 12/16/16-1256 (Continued) Procedure Result Reported Site Wound/Misc Culture Final (continued) 12/18/16- 929 1. STAPHYLOCOCCUS AUREUS (continued) M.I.C. RX --------- ------ Gentamicin <=0.5 S Linezolid 2 S Nitrofurantoin <=16 S Oxacillin <=0.25 S * Quinupristin/Dalfopristin 0.5 S Rifampin <=0.5 S Tetracycline <=1 S Doxycycline - Deduced S * Minocycline - Deduced S Trimethoprim/Sulfamethoxazole <=10 S Vancomycin 1 S Imipenem-Deduced S * Ampicillin/Sulbactam-Deduced S Cefazolin-Deduced S * These antibiotics are not available in the [facility] Formulary Contact the Microbiology Department for any additional antibiotic reporting. * ML - MAIN LAB ([facility]) . END OF REPORT * ML=Testing performed at Main Lab DEPARTMENT OF PATHOLOGY, [address] [place] [address] Jason Astudillo M.D. Director [facility] # [id number] 51 Rehabilitation Engineer: [id number] Rehabilitation Engineer: [id number] Rehabilitation Engineer: [id number] 54 Because ethnic data is not always readily available, this report includes an eGFR for both -Americans and non- Americans. The National Kidney Disease Education Program (NKDEP) does not endorse the use of the MDRD equation for patients that are not between the ages of 18 and 70, are , have extremes of body size, muscle mass, or nutritional status, or are non- or non-. According to the National Kidney Foundation, irrespective of diagnosis, the stage of the disease is based on the level of kidney function: Stage Description GFR(mL/min/1.73 m(2)) 1 Kidney damage with normal or decreased GFR 90 2 Kidney damage with mild decrease in GFR 60-89 3 Moderate decrease in GFR 30-59 4 Severe decrease in GFR 15-29 5 Kidney failure <15 (or dialysis) 55 Would you like an EBV if Monospot is Negative?: Y 56 SEE RESULT BELOW Name: KAT BOLIVAR Maxi : [address]: Cecile Garcia Acct: [id number] Unit: [id number] AGE: 31 Location: [facility] Re11/27/16 SEX: F Status: DEP ER SPEC: [id number] CODY: 11/27/16-[address]: Cecile Mauro DO REQ: [id number] RECD: 11/28/16-1416 STATUS: ROSALBA CARRERA DR: Candy Akbar PA _ SOURCE: URINE SPDESC: ORDERED: Urine Culture COMMENTS: [id number] Procedure Result Reported Site Urine Culture Final 11/29/16- 1617 ML No growth of clinically significant organisms * ML - MAIN LAB ([facility]) . END OF REPORT * ML=Testing performed at Main Lab DEPARTMENT OF PATHOLOGY, [address] [place] [address] Jason Astudillo M.D. Director [facility] # [id number] 57 RESULT: Results suggest past infection. ADDITIONAL INFORMATION In most populations, at least 90% of the adult population will have been infected with EBV sometime in the past and therefore, will be positive for anti-VCA/IgG and anti- EBNA. Antibodies to EBNA develop 6-8 weeks after primary infection and remain present for life. Presence of VCA/ IgM antibodies indicates recent primary infection with EBV. Test Performed by: [facility] - [address] [address] 58 M25.50 K50.90 59 Negative <0.80 Equivocal 0.80 - 1.19 Positive >1.19 IgM levels may peak at 3-6 weeks post infection, then gradually decline. Performed at: - [facility] [id number] Lmsw: Bonny Okeefe MD, Phone: [phone] Performed at: - [facility] [address] [id number] Lmsw: Camelia Salomon MD, Phone: [phone] 60 Negative <20 Weak positive 20 - 39 Moderate positive 40 - 59 Strong positive >59 61 Note: Persistent reduction for 3 months or more in an eGFR <60 mL/min/1.73 m2 defines CKD. Patients with eGFR values >/=60 mL/min/1.73 m2 may also have CKD if evidence of persistent proteinuria is present. The original MDRD equation for estimated GFR is not valid for patients less than 18 years of age. Additional information may be found at www.kdoqi.org. 62 Method: Sediplast Modified Westergren 63 Negative <1:80 Borderline 1:80 Positive >1:80 Performed at: - [facility] [address] [id number] Lmsw: Bonny Okeefe MD, Phone: [phone] 64 QUERY: Reflex add FT3? Y QUERY: Reflex add FT4? Y 65 NORMALLY MENSTRUATING FEMALES: Follicular Phase:............... 2.3-12.6 mIU/mL Mid-Cycle Peak:................. 5.2-17.5 mIU/mL Luteal Phase:................... 1.7-9.5 mIU/mL POSTMENOPAUSAL FEMALES: On menopausal hormone therapy (MHT)... 5.9-72.8 mIU/mL Not on MHT ........................... 0.7-10.8 mIU/mL 66 Pubertal adults FEMALES, menstrual cycle phases: Follicular Phase............. 1.9-12.8 mIU/mL Mid-Cycle Peak............... 22.2-76.1 mIU/mL Luteal Phase................. 0.6-13.5 mIU/mL Post-meonpausal FEMALE: On menopausal hormone therapy (MHT) ... 1.1-52.4 mIU/mL Not on MHT ............................ 8.6-61.8 mIU/mL 67 Non- ..... 2.2-30.3 ng/mL ......... 8.1-347.6 ng/mL Post-Menopausal .. 0.7-31.5 ng/mL 68 Note: Persistent reduction for 3 months or more in an eGFR <60 mL/min/1.73 m2 defines CKD. Patients with eGFR values >/=60 mL/min/1.73 m2 may also have CKD if evidence of persistent proteinuria is present. The original MDRD equation for estimated GFR is not valid for patients less than 18 years of age. Additional information may be found at www.kdoqi.org. 69 Values below the stated reference ranges of AST and ALT can be seen in normal populations. Clinical correlation is suggested. 70 Elevated levels of HbA1c suggest the need for more aggressive treatment of glycemia. The [place] [employer] recommends that a primary goal of therapy should be a HbA1c of <7% and that physicians should re-evaluate the treatment regimen in patients with HbA1c values consistently >8%. 71 Note: Persistent reduction for 3 months or more in an eGFR <60 mL/min/1.73 m2 defines CKD. Patients with eGFR values >/=60 mL/min/1.73 m2 may also have CKD if evidence of persistent proteinuria is present. The original MDRD equation for estimated GFR is not valid for patients less than 18 years of age. Additional information may be found at www.kdoqi.org. 72 Specimen slightly Hemolyzed, interpret with caution 73 Specimen slightly Hemolyzed, interpret with caution 74 Specimen slightly Hemolyzed, interpret with caution 75 Negative <1:80 Borderline 1:80 Positive >1:80 Performed at: RN - [facility] [address] [id number] Lmsw: Bonny Okeefe MD, Phone: [phone] 76 OPERATION/PROCEDURE Laparoscopic cholecystectomy DIAGNOSIS: "GALLBLADDER, LAPAROSCOPIC CHOLECYSTECTOMY": CHRONIC CHOLECYSTITIS, AND CHOLELITHIASIS. NO EVIDENCE OF DYSPLASIA NOR NEOPLASIA APPRECIATED. TEO/dominique 1201 GROSS Received in formalin labeled "GALLBLADDER" is a bolaños-yellow soft gallbladder with smooth serosal surface, measuring 8.2 x 3.4 x 2.8 cm. Upon opening, the wall of the gallbladder measures up to 0.2 cm in thickness. The mucosa is bolaños green yellow and velvety without tom streaks. A yellow green stone measuring 1.2 x 0.7 x 0.5 cm in seen. There is no evidence of tumor, necrosis and purulent exudates. Greens Cutter sections are submitted in one block. TEO MICROSCOPIC Sections show gallbladder mucosa lined by columnar epithelium with focal synechia, and Rokitansky-Aschoff sinus formation. The submucosa has a mild infiltrate of lymphocytes and plasma cells. The muscular wall is slightly fibrotic and hypertrophied. PRE OPERATIVE DIAGNOSIS Cholelithiasis with chronic cholecystitis REVIEW CODE CODE: I CORNELL Kolb MD 1257 77 Note: Persistent reduction for 3 months or more in an eGFR <60 mL/min/1.73 m2 defines CKD. Patients with eGFR values >/=60 mL/min/1.73 m2 may also have CKD if evidence of persistent proteinuria is present. The original MDRD equation for estimated GFR is not valid for patients less than 18 years of age. Additional information may be found at www.kdoqi.org. 78 The presence of positive fluorescence exhibiting P-ANCA or C-ANCA patterns alone is not specific for the diagnosis of Mervin's Granulomatosis (WG) or microscopic polyangiitis. Decisions about treatment should not be used solely on ANCA IFA results. The International ANCA Group Consensus recommends follow up testing of positive sera with both MS- 3 and MPO-ANCA enzyme immunoassays. As many as 5% serum samples are positive only by EIA. Ref. AM J Clin Pathol 1999;111:507-513. 79 The atypical pANCA pattern has been observed in a significant percentage of patients with ulcerative colitis, primary sclerosing cholangitis and autoimmune hepatitis. 80 QUERY: @[facility] Pat ID: QUERY: @[facility] Req #: 81 Negative <20.0 Equivocal 20.1 - 24.9 Positive >or=25.0 82 Negative <20.0 Equivocal 20.1 - 24.9 Positive >or=25.0 IgA and IgG antibody testing for S. cerevisiae is useful adjunct testing for differentiating Crohn's disease and ulcerative colitis. Close to 80% of Crohn's disease patients are positive for either IgA or IgG. In ulcerative colitis, less than 15% are positive for IgG and less than 2% are positive for IgA. Fewer than 5% are positive for either IgG or IgA antibody, and no healthy controls had antibody for both. 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 SEE COMMENT. WYS/clf INTERPRETATION COMMENT No previous pap smear within recent record is available to be reviewed in our electronic medical system. GROSS "ENDOCERVICAL CURETTINGS". The specimen is received in an appropriately labeled container. This contains <0.1 mL of pink tissue admixed with mucus. Filtered and submitted in toto within a single cassette. WS/clf MICROSCOPIC These sections show junctional metaplastic squamous mucosa characterized by cells showing nuclear enlargement, hyperchromasia, contour irregularity and dyspolarity. Focal dyskeratosis is noted. The endocervical glandular component is normal. PRE OPERATIVE DIAGNOSIS ASCUS REVIEW CODE CODE: I Signed CAMELIA ARAUJO MD 05/09/10 Procedures Date Code Description Status 05/04/2018 69316 Colonoscopy With Polypectomy Completed 05/04/2018 49812 Colonoscopy With Biopsy Completed 05/04/2018 96394 EGD With Biopsy Completed 05/04/2018 99083759 Colonoscopy Completed 02/24/2016 25 Disability Form Completed 05/15/2015 08142 Theraputic Or Diagnostic Injection Completed 03/28/2015 25 Disability Form Completed 12/26/2013 94978 Holter Monitor 24HR Inter/Report Completed 11/03/2012 14535049 Colonoscopy Completed 12/23/2010 19602 Laparoscopy; cholecystectomy Completed 12/23/2010 62596 Anesthesia, Upper Abdomen Surgery Not Otherwise Spec Completed 05/15/2010 37240314 Colonoscopy Completed 05/08/2010 67173 Colposcopy With Biopsy Completed Encounters Type Date Location Provider Dx Diagnosis Office Visit 09/01/2018 Marcos Alamo, K59.00 Constipation, 1:15p unspecified Office Visit 06/15/2018 [facility] R51 Headache 11:15a Office BECCA Gupta Office Visit 05/24/2018 Marcos Alamo, K63.5 Polyp of colon 10:45a K29.30 Chronic superficial gastritis without bleeding K50.90 Crohn's disease, unspecified, without complications Office Visit 04/21/2018 10:45a Marcos Alamo MD K50.90 Crohn's disease, unspecified, without complications Z72.0 Tobacco use Office Visit 04/15/2018 11:15a [facility] F32.9 Major depressive Office BECCA Gupta disorder, single episode, unspecified G43.009 Migraine w/o aura, not intractable, w/o status migrainosus Z23 Encounter for immunization Office Visit 10/11/2017 10:45a Primary Care Da Akbar2.9 Major depressive Office Candy, RPAC disorder, single episode, unspecified F41.9 Anxiety disorder, unspecified K58.0 Irritable bowel syndrome with diarrhea Office Visit 09/08/2017 10:15a [facility] [place], F32.9 Major depressive Office Candy, RPAC disorder, single episode, unspecified F41.9 Anxiety disorder, unspecified G43.009 Migraine w/o aura, not intractable, w/o status migrainosus K50.90 Crohn's disease, unspecified, without complications Office Visit 08/13/2017 1:15p [facility] [place], F31.9 Bipolar disorder, Office Candy, RPAC unspecified F32.9 Major depressive disorder, single episode, unspecified Office Visit 07/30/2017 11:30a [facility] [place], F41.9 Anxiety disorder, Office Candy, RPAC unspecified F31.9 Bipolar disorder, unspecified M25.50 Pain in unspecified joint Office Visit 06/09/2017 10:15a [facility] [place], N92.1 Excessive and Office Candy, RPAC frequent menstruation with irregular cycle M46.1 Sacroiliitis, not elsewhere classified Office Visit 03/19/2017 10:00a [facility] [place], F34.1 Dysthymic Office Candy, RPAC disorder Z23 Encounter for immunization G43.009 Migraine w/o aura, not intractable, w/o status migrainosus Office Visit 02/11/2017 11:30a [facility] [place], N92.0 Excessive and Office Candy, RPAC frequent menstruation with regular cycle G43.009 Migraine w/o aura, not intractable, w/o status migrainosus F34.1 Dysthymic disorder K50.90 Crohn's disease, unspecified, without complications Office Visit 11/05/2016 9:30a [facility] [place], K50.90 Crohn's disease, Office Candy, RPAC unspecified, without complications M25.50 Pain in unspecified joint F34.1 Dysthymic disorder G43.009 Migraine w/o aura, not intractable, w/o status migrainosus G56.03 Carpal tunnel syndrome, bilateral upper limbs Office Visit 04/22/2016 10:15a [facility] [place], K58.0 Irritable bowel Office Candy, RPAC syndrome with diarrhea G43.009 Migraine w/o aura, not intractable, w/o status migrainosus Z23 Encounter for immunization Office Visit 05/15/2015 9:30a Primary Care Office Candy Akbar, R53.1 Weakness [facility] R42 Dizziness and giddiness R51 Headache Z23 Encounter for immunization Z11.1 Encounter for screening for respiratory tuberculosis Office Visit 02/07/2015 11:15a Primary Care Ke Saldana 386.11 Vertigo Benign Office E., DO Paroxysmal Position Office Visit 12/25/2014 10:30a Primary [facility]y, 300.4 Dysthymic Disorder Office Candy [facility] 724.2 Lumbago 346.92 Migraine Unspecified, W/Out Mention Intractable Migraine 692.9 Dermatitis Unspec Cause Due To Spec Agents Other Office Visit 10/30/2014 10:00a Family Medicine [facility], 338.[address] Candy, [facility] Syndrome 354.0 Carpal Tunnel Syndrome 300.4 Dysthymic Disorder 724.2 Lumbago 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 Smear HPV NEC 305.1 Tobacco Use Disorder Plan of Treatment 09/01/2018 - Marcos Henson MDK59.00 Constipation, unspecifiedNew Medication: Lactulose 20 GM/30ML - 15 milliliters by mouth twice a day as neededComments: patient tried dulcolax and colace otcwill begin trial of lactuloseFollow up:2 months follow up
[2018-11-21 11:31] VITALS: BP 125/86
[2018-11-21] MEDS ORDERED: Ondansetron TAB* 4 MG PO ONE (11:37)
[2018-11-21] MEDS ORDERED: Ibuprofen TAB* 600 MG PO ONE (11:37)
[2018-11-21] MEDS ORDERED: Ondansetron ODT TAB* 4 MG PO ONE (11:42)
--- NOTE | 2018-11-21 11:51 | ED ---
Upper Extremity Pain - HPI Summary HPI Summary: 33 yr old female with the complaint of right elbow and shoulder pain. Onset of pain after she fell landing on her right elbow when she slipped. She had her nephew on her shoulders and tried to protect him from hitting his head. She landed on her right elbow. She has pain that is 7/10. Associated with nausea. 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 - Surgical History Surgery Procedure, Year, and Place: tubal, cervical dysplasia Infectious Disease History: No Infectious Disease History: Denies: Traveled Outside the [place] in Last 30 Days - Family History Known Family History: Positive: Cardiac Disease, Hypertension, Diabetes - Social History Alcohol Use: Occasionally Substance Use Type: Reports: None Smoking Status (MU): Former Smoker Type: Cigarettes Amount Used/How Often: 1/2 PPD Length of Time of Smoking/Using Tobacco: 14 YRS Have You Smoked in the Last Year: No Review of Systems Constitutional: Negative Positive: Other - pain right elbow and right shoulder All Other Systems Reviewed And Are Negative: Yes Physical Exam Triage Information Reviewed: Yes Vital Signs On Initial Exam: Initial Vitals Temp Pulse Resp BP Pulse Ox 97.9 F 65 18 125/86 100 11/21/18 11:26 11/21/18 11:26 11/21/18 11:26 11/21/18 11:26 11/21/18 11:26 Vital Signs Reviewed: Yes Appearance: Positive: Well-Appearing, No Pain Distress Skin: Positive: Warm Head/Face: Positive: Normal Head/Face Inspection Eyes: Positive: EOMI ENT: Positive: Normal ENT inspection Neck: Positive: Nontender Respiratory/Lung Sounds: Positive: Clear to Auscultation, Breath Sounds Present Cardiovascular: Positive: RRR. Negative: Murmur Abdomen Description: Negative: Distended Musculoskeletal: Positive: Other - STS over the right elbow. Tenderness over the right anterior shoulder and the right AC joint area. No STS. Neurological: Positive: Sensory/Motor Intact, Alert, Oriented to Person Place, Time, CN Intact II-III Psychiatric: Positive: Normal - Monica Coma Scale Best Eye Response: 4 - Spontaneous Best Motor Response: 6 - Obeys Commands Best Verbal Response: 5 - Oriented Coma Scale Total: 15 Diagnostics - Vital Signs Vital Signs Temp Pulse Resp BP Pulse Ox 11/21/18 11:26 97.9 F 65 18 125/86 100 - Laboratory Lab Statement: Any lab studies that have been ordered have been reviewed, and results considered in the medical decision making process. - Radiology right elbow, right shoulder Radiology Interpretation Completed By: Radiologist - NAD Course/Dx - Course Course Of Treatment: 33 yr old with contusion to elbow, shoulder. DC home, sling, fu with pmd - Diagnoses Provider Diagnoses: Contusion of elbow, right Discharge - Sign-Out/Discharge Documenting (check all that apply): Patient Departure All imaging exams completed and their final reports reviewed: Yes - Discharge Plan Condition: Good Disposition: HOME Patient Education Materials: Contusion in Adults (ED) Referrals: Candy Akbar PA [Primary Care Provider] - 2 Days - Billing Disposition and Condition Condition: GOOD Disposition: Home
== END 2018-11-21 12:56 | disposition home or self-care (01) ==
LOC: UCCORT 11:17
DX: S50.01XA Contusion of right elbow, initial encounter (principal); M25.511 Pain in right shoulder; R11.0 Nausea; Z88.1 Allergy status to other antibiotic agents; Z88.8 Allergy status to other drugs, medicaments and biological substances; Z87.891 Personal history of nicotine dependence; W01.0XXA Fall on same level from slipping, tripping and stumbling without subsequent striking against object, initial encounter; Y92.9 Unspecified place or not applicable
CPT/HCPCS: 99213; A9270-GY; G0463

== ENCOUNTER 2019-04-05 14:03 | Emergency (ER) | payer OTHER ==
[2019-04-05 14:28] VITALS: BP 127/74
--- NOTE | 2019-04-05 14:50 | UC ---
Respiratory Complaint HPI - HPI Summary HPI Summary: 34-year-old female presents for 3 week history of nasal congestion, sinus pressure, ear fullness, sore throat, and an occasionally productive cough for yellow-green sputum. Reports over the past 3-4 days she has been getting a burning sensation in her chest with cough. Patient states that she was treated for pneumonia little over a month ago. Patient is on immunosuppressive therapy for Crohn's disease. Denies fever, chills, dysphagia, palpitations, shortness of breath, or wheezing. - History of Current Complaint Chief Complaint: UCRespiratory Stated Complaint: COLD SYMPTOMS Hx Obtained From: Patient Hx Last Menstrual Period: 04/04/19 Pain Intensity: 2 - Allergies/Home Medications Allergies/Adverse Reactions: Allergies Allergy/AdvReac Type Severity Reaction Status Date / Time doxycycline Allergy Vomiting Verified 04/05/19 14:28 paroxetine [From Paxil] Allergy Agitation Verified 04/05/19 14:28 PMH/Surg Hx/FS Hx/Imm Hx GI/ History: Other - Crohn's disease Neurological History: Migraine Psychological History: Anxiety, Depression - Surgical History Surgical History: Yes Surgery Procedure, Year, and Place: tubal, cervical dysplasia - Family History Known Family History: Positive: Cardiac Disease, Hypertension, Diabetes - Social History Occupation: Unemployed Lives: With Family Alcohol Use: Occasionally Substance Use Type: None Smoking Status (MU): Heavy Every Day Tobacco Smoker Type: Cigarettes Amount Used/How Often: 1/2 PPD Length of Time of Smoking/Using Tobacco: 14 YRS Have You Smoked in the Last Year: No When Did the Patient Quit Smoking/Using Tobacco: 2 yr ago Review of Systems All Other Systems Reviewed And Are Negative: Yes Constitutional: Negative: Fever, Chills Eyes: Negative: Drainage, Eye Redness ENT: Positive: Sore Throat, Ear Ache, Nasal Discharge, Sinus Congestion, Sinus Pain/Tenderness Respiratory: Positive: Cough. Negative: Shortness Of Breath Cardiovascular: Negative: Palpitations Gastrointestinal: Negative: Abdominal Pain, Vomiting, Diarrhea, Nausea Genitourinary: Positive: Negative Musculoskeletal: Positive: Negative Neurological: Positive: Negative Is Patient Immunocompromised?: Yes - On immunosuppressives for Crohn's disease Physical Exam - Summary Physical Exam Summary: GENERAL APPEARANCE: Alert and cooperative obese female who appears to be in no acute distress. EYES: Conjunctiva clear. No drainage. PERRL, EOM intact. Vision is grossly intact. EARS: External auditory canals and tympanic membranes clear, hearing grossly intact. NOSE: Moderate nasal congestion. No nasal discharge. Maxillary sinus tenderness. THROAT: Pharyngeal cobblestoning. No tonsilar inflammation, swelling, exudate, or lesions. Uvula midline. NECK: Neck supple, non-tender without lymphadenopathy. CARDIAC: Normal S1 and S2. No S3, S4 or murmurs. Rhythm is regular. There is no peripheral edema, cyanosis or pallor. Extremities are warm and well perfused. Capillary refill is less than 2 seconds. Peripheral pulses intact. LUNGS: Clear to auscultation without rales, rhonchi, wheezing or diminished breath sounds. ABDOMEN: Positive bowel sounds. Soft, nondistended, nontender. No guarding or rebound. No masses or hepatosplenomegally. MUSKULOSKELETAL: ROM intact to all extremities. No joint erythema or tenderness. Normal muscular development. Normal gait. SKIN: Skin normal color, texture and turgor with no lesions or eruptions. Triage Information Reviewed: Yes Vital Signs: Initial Vital Signs Temp 97.8 F 04/05/19 14:24 Pulse 67 04/05/19 14:24 Resp 18 04/05/19 14:24 BP 127/74 04/05/19 14:24 Pulse Ox 100 04/05/19 14:24 Vital Signs Reviewed: Yes Respiratory Course/Dx - Course Course Of Treatment: 34-year-old female presents for 3 week history of nasal congestion, sinus pressure, ear fullness, sore throat, and an occasionally productive cough for yellow-green sputum. Reports over the past 3-4 days she has been getting a burning sensation in her chest with cough. Patient states that she was treated for pneumonia little over a month ago. Patient is on immunosuppressive therapy for Crohn's disease. Denies fever, chills, dysphagia, palpitations, shortness of breath, or wheezing. Afebrile. Vital signs stable. Patient had moderate nasal congestion, maxillary sinus tenderness, pharyngeal cobblestoning without tonsillar swelling or exudate, no cervical lymphadenopathy, clear bilateral breath sounds, dry nonproductive cough, and otherwise unremarkable exam. Considering the duration of her symptoms, her recent use of antibiotics for pneumonia, and the fact that she is on immunosuppressive therapy for her Crohn' s disease we will treat her for an acute sinusitis with Augmentin 875 mg twice a day 10 days as well as symptomatic treatment. She is to follow-up with her primary care provider in 3-5 days if symptoms are not improving. Anticipatory guidance and warning symptoms were reviewed with the patient. Verbalizes understanding and agrees with plan of care. - Differential Dx/Diagnosis Differential Diagnosis/HQI/PQRI: Bronchitis, Lower Resp Infection, Sinusitis Provider Diagnosis: Acute maxillary sinusitis Discharge ED - Sign-Out/Discharge Documenting (check all that apply): Patient Departure All imaging exams completed and their final reports reviewed: No Studies - Discharge Plan Condition: Stable Disposition: HOME Prescriptions: Amoxicillin/Clavulanate TAB* [Augmentin TAB 875*] 875 mg PO BID #20 tab Benzonatate CAP* [Tessalon 100 MG CAP*] 100 mg PO TID PRN #21 cap PRN Reason: Cough Fluticasone NASAL SPRAY 50MCG* [Flonase NASAL SPRAY 50MCG*] 2 spray BOTH NARES DAILY #1 btl Patient Education Materials: Sinusitis (ED) Referrals: Judi Camarillo NP [Primary Care Provider] - 3 Days Additional Instructions: Your history and exam are consistent with a sinus infection. Considering the duration of your symptoms we will start you on an antibiotic to treat the infection. Start Augmentin 875 mg 1 tab twice a day for 10 days. Take with food to avoid upset stomach. Be sure to complete the entire course even if feeling better. Drink plenty of fluids. Use a saline rinse kit such as Neti Pot or NeilMed at least twice a day to help thin secretions and promote drainage of the sinuses. Use fluticasone (Flonase) nasal spray 2 sprays each nostril once daily. Use an over the counter decongestant such as Sudafed according to directions to help with congestion. Use Tessalon Perles 1 capsule every 8 hours as needed for cough. Take over the counter acetaminophen (Tylenol) or ibuprofen (Advil, Motrin) according to directions as needed for pain or fever. Follow up with your primary care provider in 3-5 days if symptoms persist. Seek immediate medical attention in the emergency room if you have fever greater than 100.5 F despite taking acetaminophen or ibuprofen, have chest pain , difficulty breathing, are unable to swallow, or have any worsening of symptoms. - Billing Disposition and Condition Condition: STABLE Disposition: Home - Attestation Statements Provider Attestation: Per institutional requirements, I have reviewed the chart, however, I was not consulted specifically or made aware of this patient by the midlevel provider. I did not personally evaluate, interact with , or disposition this patient.
== END 2019-04-05 15:07 | disposition home or self-care (01) ==
LOC: UCCORT 14:03
DX: J01.00 Acute maxillary sinusitis, unspecified (principal); K50.90 Crohn's disease, unspecified, without complications; F17.210 Nicotine dependence, cigarettes, uncomplicated; Z88.1 Allergy status to other antibiotic agents; Z88.8 Allergy status to other drugs, medicaments and biological substances
CPT/HCPCS: 99212; G0463